=== PATIENT | female | born 1965 | race Caucasian/White ===

== ENCOUNTER → 2017-04-24 | Day surgery (SDC) | payer OTHER ==
[~2017-04-24] MED LIST: BUPIVACAINE/EPINEPHRINE 0.25% PF 10 ML VIAL INFIL ONE; COZA100T PO; ESTR2TAB PO; KETOROLAC TROMETHAMINE 30 MG/ML (IVP) VIAL IV PUSH ONE; LACTATED RINGER'S 1000 ML INJ 1,000 ML ONE; LEVO25TA36 PO; LIOT5 PO; MIDAZOLAM HCL 2 MG/2 ML VIAL ONE; OMEP20TA PO; ONDANSETRON HCL 4 MG/2 ML VIAL IV PUSH ONE; PROPOFOL 200 MG/20 ML AMP IV ONE; SUMA50 PO; TAB-TAB PO; VITA100020 SL; ceFAZolin INJ 1,000 MG VIAL ONE
--- NOTE | 2017-04-24 15:05 | TN ---
cc: NILA SHELTON MD DATE OF SURGERY: 04/24/2017 ATTENDING PHYSICIAN: Nila Shelton MD. PREOPERATIVE DIAGNOSIS Right knee torn lateral meniscus. POSTOPERATIVE DIAGNOSIS Right knee torn lateral meniscus. PROCEDURE Right knee arthroscopy, partial lateral meniscectomy. PROCEDURE IN DETAIL Informed consent was obtained, the patient taken to the operating room and placed in the supine position, she was administered a general anesthesia by Dr. Barakat of Anesthesia department. Right leg had a tourniquet applied was then prepped with Betadine soap followed by Betadine paint, draped commenced in standard fashion including sterile towel about the tourniquet, sterile U drape down sheet, a stockinette was applied to the foot and calf, This was wrapped with Coban and extremity drape was applied. The table was elevated maximum height. The leg was elevated. The patient given gram of Ancef prior to initiation operative procedure. A time-out was held and confirmed. At that time the tourniquet inflated to 300 mmHg in the leg was allowed to flex over the side of the operating table. An 18 gauge spinal needle was placed in the region of the lateral infrapatellar portal. This region infiltrated 4 cc of 0.25% Marcaine with epinephrine. Infiltration also performed in the medial and patellar portal and trans patellar tendon portal region. A small incision was made with 11-blade in the region of the trans patellar tendon portal inflow cannula was placed. A second incision was placed in the region of the lateral infrapatellar portal, the arthroscopic cannula was placed. Diagnostic arthroscopy commenced, the medial compartment was examined. The anterior portion the medial meniscus appeared intact. However in zone II of the medial meniscus. There was a small flap tear which involved the free edge, this was debrided with a meniscal shaver. The meniscus was probed. No additional tears were seen. There was one small area of chondromalacia noted on the medial femoral condyle. At that time the scope was maneuvered over the intercondylar notch, at the intra lateral compartment. The anterior and posterior cruciate ligaments were examined, this appeared normal. The scope was placed in lateral compartment the leg was placed in a figure four position. There was a large complex degenerative type tear involving the lateral meniscus. The posterior horn was torn. The lateral portions of the meniscus were torn which included a horizontal cleavage tear in zone five. The meniscus was debrided with the meniscal shaver. A probe was utilized to bring forth a small flap from the undersurface of the lateral meniscus and this was debrided with the meniscal shaver. There were some mild chondromalacia changes seen on the lateral femoral condyle. There was an area in the lateral fifth plateau with a small grade 3 area of chondromalacia. At that time the scope was placed in posterior medial and posterolateral compartments. These appeared normal. The scope was then placed in suprapatellar pouch. This appeared normal. Undersurface of patella and trochlear groove both had some mild chondromalacia changes. There was synovium noted in the plica region which was debrided with the meniscal shaver. At that time the knee was thoroughly irrigated, suctioned all cannulas were removed. Each portal was closed with single 4-0 nylon interrupted stitch. Band-Aids, 4x4s, soft roll, Julián wrap were applied to the patient's knee. At that time the tourniquet is deflated. Total tourniquet time was 25 minutes. The patient thought procedure well was taken to room in stable condition at the completion of the procedure sponge count, instrument count and needle counts were correct. Estimated blood loss was less than 10 cc. MD LAKHWINDER Prasad/moris /2:30 PM /2:49 PM
== END | disposition home or self-care (01) ==
LOC: ESDC 11:45
PROVIDERS: ATTEND Orthopaedic Surgery
DX: S83.271A Complex tear of lateral meniscus, current injury, right knee, initial encounter (principal)
CPT/HCPCS: 01400; 29881; J0690; J1885; J2250; J2405; J3010; J7120